=== PATIENT | female | born 1980 | race American Indian/Alaskan Native ===

== ENCOUNTER 2018-01-25 19:41 | Emergency (ER) | payer OTHER ==
[2018-01-25 20:56] VITALS: BP 115/71
[2018-01-25 22:18] LABS: Bilirubin,Urine NEG (Negative); Blood,Urine NEG (Negative); Color,Urine Yellow (Yellow); Protein,Urine <15 mg/dL mg/dL (Negative); RBC,Urine < 1.0 /HPF (0.0-6.0); Urobilinogen,Urine < 2.0 mg/dL (<2.0); WBC,Urine < 1.0 /HPF (0.0-6.0)
[2018-01-25 22:19] LABS: HCG Qualitative,Urine Negative (Negative)
[2018-01-26] MEDS ORDERED: TORADOL IM ONE (00:24)
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
== END 2018-01-26 01:03 | disposition home or self-care (01) ==
LOC: ED 19:41
DX: M54.5 Low back pain (principal); M54.2 Cervicalgia; M54.6 Pain in thoracic spine; F12.10 Cannabis abuse, uncomplicated
CPT/HCPCS: 81001; 81025; 96372; 99283; J1885